=== PATIENT | female | born 1980 | race Caucasian/White ===

== ENCOUNTER 2018-10-15 04:23 | Emergency (ER) | payer MEDICAID ==
[~2018-10-15] VITALS: Ht 170.2 cm; Wt 115.5 kg
[2018-10-15 04:33] VITALS: BP 138/88; Ht 170.2 cm; Wt 115.5 kg
[2018-10-15] MEDS ORDERED: FLUTICASONE PRO16 GM NASAL (05:07)
[2018-10-15] MEDS ORDERED: AUGMENTIN 875-11 TAB PO (05:07)
== END 2018-10-15 05:46 | disposition home or self-care (01) ==
LOC: D.ER 04:23
DX: J01.90 Acute sinusitis, unspecified (principal); R51 Headache

== ENCOUNTER 2018-11-20 02:30 | Emergency (ER) | payer MEDICAID ==
[~2018-11-20] VITALS: Ht 170.2 cm; Wt 111.4 kg
[~2018-11-20 02:30] MED LIST: AUGMENTIN 875-11 TAB PO; FLUTICASONE PRO16 GM NASAL
[2018-11-20 02:40] VITALS: Ht 170.2 cm; Wt 111.4 kg
[2018-11-20] MEDS ORDERED: ZANTAC300 MG PO (02:42)
[2018-11-20] MEDS ORDERED: ZYRTEC10 MG PO (02:42)
[2018-11-20] MEDS ORDERED: MOBIC7.5 MG PO (02:42)
[2018-11-20] MEDS ORDERED: DICLOFENAC SODI50 MG PO (03:06)
[2018-11-20 04:02] LABS: APPEARANCE CLEAR (CLEAR); COLOR YELLOW (YELLOW); HCG URINE NEGATIVE (NEGATIVE)
[2018-11-20 04:03] LABS: BILIRUBIN NEGATIVE (NEGATIVE); GLUCOSE NEGATIVE (NEGATIVE); KETONE NEGATIVE (NEGATIVE); NITRITE NEGATIVE (NEGATIVE); PROTEIN NEGATIVE (NEGATIVE); SPECIFIC GRAVITY 1.025 (1.005-1.020); UROBILINOGEN NORMAL (NORMAL)
[2018-11-20 04:04] LABS: BACTERIA NONE SEEN /hpf (NONE SEEN); EPITHELIAL CELLS 0-5 /hpf (0-5); RED CELLS - URINE 0-5 /hpf (0-5); WHITE CELLS - URINE 0-5 /hpf (0-5)
[2018-11-20 04:19] VITALS: BP 104/69
== END 2018-11-20 04:20 | disposition home or self-care (01) ==
LOC: D.ER 02:30
PROVIDERS: Family Medicine
DX: S39.012A Strain of muscle, fascia and tendon of lower back, initial encounter (principal); W18.30XA Fall on same level, unspecified, initial encounter; Y93.89 Activity, other specified; Y92.89 Other specified places as the place of occurrence of the external cause

== ENCOUNTER 2019-02-04 09:46 | Emergency (ER) | payer OTHER ==
[~2019-02-04] VITALS: Ht 170.2 cm; Wt 111.4 kg
[~2019-02-04 09:46] MED LIST changes: +DICLOFENAC SODI50 MG PO; +MOBIC7.5 MG PO; +ZANTAC300 MG PO; +ZYRTEC10 MG PO
[2019-02-04 09:58] VITALS: Ht 170.2 cm; Wt 111.4 kg
[2019-02-04] MEDS ORDERED: MUCINEX DM ER1 EAC1 PO (13:08)
[2019-02-04] MEDS ORDERED: PREDNISONE20 MG PO (13:08)
[2019-02-04] MEDS ORDERED: AUGMENTIN 875-11 TAB PO (13:08)
[2019-02-04 13:40] VITALS: BP 128/65
== END 2019-02-04 13:40 | disposition home or self-care (01) ==
LOC: D.ER 09:46
DX: J18.1 Lobar pneumonia, unspecified organism (principal)

== ENCOUNTER 2019-06-06 01:00 | Emergency (ER) | payer OTHER ==
[~2019-06-06] VITALS: Ht 170.2 cm; Wt 122.7 kg
[~2019-06-06 01:00] MED LIST changes: +KEFLEX500 MG PO; +MUCINEX DM ER1 EAC1 PO; +PREDNISONE20 MG PO
[2019-06-06 01:10] VITALS: Ht 170.2 cm; Wt 122.7 kg
[2019-06-06 01:48] VITALS: BP 112/69
== END 2019-06-06 01:49 | disposition home or self-care (01) ==
LOC: D.ER 01:00
DX: Z48.02 Encounter for removal of sutures (principal); K21.9 Gastro-esophageal reflux disease without esophagitis

== ENCOUNTER 2019-10-28 08:12 | Inpatient (IN) | payer OTHER ==
[~2019-10-28] VITALS: Ht 170.2 cm; Wt 129.5 kg
[2019-10-28] MEDS ORDERED: NAPROSYN500 MG PO (08:26)
--- NOTE | 2019-10-28 08:49 | NUR ---
JILLIAN ESTABLISHED 20 GA R SC.
[2019-10-28 08:54] LABS: BASOPHILS 0.4 % (0-2); EOSINOPHILS 2.2 % (0-7); HEMATOCRIT 39.9 % (36.0-48.0); HEMOGLOBIN 13.1 g/dL (12-16); IMMATURE GRANULOCYTES 0.6 % (0-5); LYMPHOCYTES 20.2 % (15-50); MCH 28.2 pg (26.0-34.0); MCHC 32.8 g/dL (31.0-37.0); MEAN PLATELET VOLUME 9.2 fL (7.4-10.4); MONOCYTES 6.3 % (2-11); NEUTROPHILS 70.3 % (40-80); PLATELET COUNT 284 10x3/uL (130-400); RBC 4.64 10x6/uL (4.00-5.40); RDW 13.7 % (11.5-14.5); WBC 14.9 10x3/uL (4.8-10.8)
[2019-10-28 09:04] LABS: ANION GAP 11.4 mmol/L (8-16); CALCIUM 9.3 mg/dL (8.5-10.1); CARBON DIOXIDE 27.7 mmol/L (21.0-32.0); CREATININE - SERUM 0.9 mg/dL (0.6-1.3); POTASSIUM - SERUM 4.1 mmol/L (3.5-5.1)
[2019-10-28 09:06] LABS: ALBUMIN 3.6 g/dL (3.4-5.0); BILIRUBIN - TOTAL 0.4 mg/dL (0.2-1.3); PROTEIN - SERUM 7.2 g/dL (6.4-8.2)
--- NOTE | 2019-10-28 10:10 | NUR ---
BLOOD CULTURES X2 COLLECTED PRIOR TO ABX ADMINISTRATION.
[2019-10-28 11:34] VITALS: BP 103/62
--- NOTE | 2019-10-28 12:01 | NUR ---
REPORT GIVEN TO CHANNING CURRAN.
[2019-10-28 12:27] VITALS: BP 104/62; Ht 170.2 cm; Wt 129.5 kg
--- NOTE | 2019-10-28 12:39 | NUR ---
PATIENT TO ROOM 2240 FROM ER VIA WHEELCHAIR. WOUND NOTED TO LLQ OF ABDOMEN WOUND IS NICKEL SIZED IN DIAMETER AND HAS YELLOW/GREEN DRAINAGE AND SLIGHT ODOR.ASSESSMENT PER FLOW SHEET. ORIENTATION TO ROOM. CALL LIGHT IN REACH.
[2019-10-28 17:00] VITALS: BP 117/80
--- NOTE | 2019-10-28 19:30 | NUR ---
A&O, AMBULATES INDEPENDENTLY. REMORTS DISCOMFORT TO LLQ OF ABD. AT BEDSIDE. PT WORRIED SHE MAY LOSE HER JOB IF ADMISSION LASTS LONGER THAN OVER NIGHT.
[2019-10-28 20:00] VITALS: BP 104/54
[2019-10-29] VITALS: BP 107/66
--- NOTE | 2019-10-29 01:40 | NUR ---
I have reviewed this patient and I concur with the Shift Assessment completed by the Licensed Practical Nurse today this shift.
[2019-10-29 04:00] VITALS: BP 115/69
[2019-10-29 06:17] LABS: ALBUMIN 2.8 g/dL (3.4-5.0); ALKALINE PHOSPHATASE 60 U/L (30-120); BILIRUBIN - TOTAL 0.43 mg/dL (0.2-1.3); CALC OSMOLALITY 276 mosm/kg (275-300); CALCIUM 8.2 mg/dL (8.5-10.1); CARBON DIOXIDE 23.2 mmol/L (21.0-32.0); CHLORIDE - SERUM 108 mmol/L (98-107); GLUCOSE 102 mg/dL (74-106); PHOSPHOROUS 2.5 mg/dL (2.5-4.9); PROTEIN - SERUM 6.1 g/dL (6.4-8.2); SODIUM 139 mmol/L (136-145); UREA NITROGEN 11 mg/dL (7-18)
[2019-10-29 06:19] LABS: CREATININE - SERUM 0.6 mg/dL (0.6-1.3)
[2019-10-29 06:20] LABS: ALT (SGPT) 33 U/L (10-68); POTASSIUM - SERUM 5.1 mmol/L (3.5-5.1); eGFR NON AFRICAN AMERICAN > 90 mL/min (90-120)
[2019-10-29 07:55] LABS: BASOPHILS 0.6 % (0-2); EOSINOPHILS 3.4 % (0-7); HEMATOCRIT 36.3 % (36.0-48.0); HEMOGLOBIN 11.9 g/dL (12-16); IMMATURE GRANULOCYTES 0.5 % (0-5); LYMPHOCYTES 30.4 % (15-50); MCH 28.5 pg (26.0-34.0); MCHC 32.8 g/dL (31.0-37.0); MCV 86.8 fL (80.0-100.0); MEAN PLATELET VOLUME 9.5 fL (7.4-10.4); MONOCYTES 7.5 % (2-11); NEUTROPHILS 57.6 % (40-80); PLATELET COUNT 254 10x3/uL (130-400); RBC 4.18 10x6/uL (4.00-5.40); RDW 14.1 % (11.5-14.5)
--- NOTE | 2019-10-29 09:16 | NUR ---
ASSESSMENT PER FLOW SHEET. IV RIGHT AC TENDER. DCD WITH CATH TIP INTACT. IV RESITED TO LEFT HAND X1 STICK ASEPTIC TECH,20G. CALL LIGHT IN REACH
[2019-10-29 09:17] VITALS: BP 130/82
--- NOTE | 2019-10-29 14:07 | NUR ---
GRAM + BLOOD CX CALLED TO [facility].
[2019-10-29 14:41] VITALS: BP 133/77
[2019-10-29 17:39] VITALS: BP 116/72
--- NOTE | 2019-10-29 18:12 | NUR ---
REMAINS WITHOUT DISTRESS.HAS NOT COMPLAINED OF PAIN TODAY. WANTS TO SHOWER. CONT PLAN OF CARE
[2019-10-29 20:00] VITALS: BP 111/73
--- NOTE | 2019-10-29 20:00 | NUR ---
A&O X 4, REPORTS PAIN OF 2/10.OUT OF SHOWER, AMBULATES INDEPENDENTLY. REATTATCHED TO IV. NO FURTHER NEEDS VOICED, CTM.
[2019-10-30] VITALS: BP 135/76
[2019-10-30 04:00] VITALS: BP 129/76
[2019-10-30 05:07] LABS: CALC OSMOLALITY 276 mosm/kg (275-300); CALCIUM 8.4 mg/dL (8.5-10.1); CARBON DIOXIDE 22.7 mmol/L (21.0-32.0); CHLORIDE - SERUM 113 mmol/L (98-107); GLUCOSE 96 mg/dL (74-106); MAGNESIUM - SERUM 2.1 mg/dL (1.8-2.4); PHOSPHOROUS 2.3 mg/dL (2.5-4.9); SODIUM 139 mmol/L (136-145); UREA NITROGEN 9 mg/dL (7-18)
--- NOTE | 2019-10-30 05:11 | NUR ---
I have reviewed this patient and I concur with the Shift Assessment completed by the Licensed Practical Nurse today this shift.
[2019-10-30 05:12] LABS: CREATININE - SERUM 0.8 mg/dL (0.6-1.3); eGFR NON AFRICAN AMERICAN 85 mL/min (90-120)
[2019-10-30 05:13] LABS: POTASSIUM - SERUM 4.2 mmol/L (3.5-5.1)
[2019-10-30 07:13] LABS: BASOPHILS 0.3 % (0-2); EOSINOPHILS 3.4 % (0-7); HEMOGLOBIN 11.2 g/dL (12-16); IMMATURE GRANULOCYTES 0.5 % (0-5); LYMPHOCYTES 30.4 % (15-50); MCV 87.5 fL (80.0-100.0); MEAN PLATELET VOLUME 9.3 fL (7.4-10.4); MONOCYTES 5.8 % (2-11); NEUTROPHILS 59.6 % (40-80); PLATELET COUNT 241 10x3/uL (130-400); RDW 13.8 % (11.5-14.5); WBC 11.9 10x3/uL (4.8-10.8)
--- NOTE | 2019-10-30 07:44 | NUR ---
ALERT AND ORIENTED. LUNGS CLEAR BILATERALLY. HEART SOUNDS S1 AND S2 HEARD IN ALL [place]. BOWEL SOUNDS ACTIVE X 4. IV TO LEFT HAND PATENT WITHOUT REDNESS. DENIES NEEDS. BED LOW. CALL SEPULVEDA AND PERSONAL ITEMS IN REACH. WILL CONTINUE TO MONITOR.
[2019-10-30 09:03] VITALS: BP 128/78
--- NOTE | 2019-10-30 10:28 | NUR ---
FREE NICOTINE PATCH FORM REQUESTED AND GIVEN TO PATIENT TO FILL OUT FOR DISCHARGE.
--- NOTE | 2019-10-30 12:40 | NUR ---
SITTING IN BED EATING LUNCH. DENIES NEEDS. WILL CONTINUE TO MONITOR.
[2019-10-30 13:00] VITALS: BP 143/74
--- NOTE | 2019-10-30 15:09 | NUR ---
SPOKE WITH LAB WHO STATES PATIENT'S 24HOUR BLOOD CULTURE IS NEGATIVE BUT IS NOT FINAL UNTIL DAY FIVE. PATIENTS CALLING AND WANTING PATIENT TO BE DISCHARGED. SPOKE WITH CANDELARIO KU ABOUT PATIENT DISCHARGING. STATES WILL TALK TO DR GIBBONS AND GET BACK TO NURSE.
[2019-10-30 15:12] LABS: BILIRUBIN NEGATIVE (NEGATIVE); GLUCOSE NEGATIVE (NEGATIVE); KETONE NEGATIVE (NEGATIVE); NITRITE NEGATIVE (NEGATIVE); UROBILINOGEN NORMAL (NORMAL)
[2019-10-30] MEDS ORDERED: NICODERM CQ1 EAC3 TRANSDERM (16:21)
[2019-10-30] MEDS ORDERED: BACTRIM DS TAB1 EAC1 PO (16:22)
--- NOTE | 2019-10-30 17:19 | NUR ---
DISCHARGE EDUCATION PROVIDED BOTH WRITTEN AND VERBAL. VERBALIZED UNDERSTANDING. DENIES QUESTIONS. IV REMOVED FROM LEFT HAND WITH TIP INTACT. WAITING RIDE HOME.
[2019-10-30 17:36] VITALS: BP 139/75
--- NOTE | 2019-10-30 17:48 | NUR ---
PATIENT DC HOME WITH ALL BELONGINGS.
== END 2019-10-30 17:49 | disposition home or self-care (01) | DRG 603 ==
LOC: D.ER 08:12 → D.MS 10:39 → OBSVTIME 10:39 → D.MS 10:39
PROVIDERS: Emergency Medicine; Family Medicine; ADMIT Family Medicine; ATTEND Family Medicine
DX: L03.311 Cellulitis of abdominal wall (principal); Z68.41 Body mass index [BMI] 40.0-44.9, adult; Z72.0 Tobacco use; E66.9 Obesity, unspecified

== ENCOUNTER → 2019-11-06 09:49 | Outpatient (CLI) | payer OTHER ==
[2019-10-28 12:27] VITALS: BMI 42.4
[~2019-11-06 09:49] MED LIST changes: +BACTRIM DS TAB1 EAC1 PO; +NAPROSYN500 MG PO; +NICODERM CQ1 EAC3 TRANSDERM
== END | disposition home or self-care (01) ==
LOC: D.MRI 09:49
PROVIDERS: ATTEND Nurse Practitioner Family
DX: M25.561 Pain in right knee (principal)